=== PATIENT | female | born 1995 | race Caucasian/White ===

== ENCOUNTER → 2021-05-07 | Emergency (ER) | payer MEDICAID ==
[~2021-05-07] VITALS: Ht 160 cm; Wt 53.5 kg
[~2021-05-07] MED LIST: CEPH250C PO
[2021-05-07 01:25] VITALS: BP 108/64
--- NOTE | 2021-05-07 01:25 | NUR ---
PT BIBHUSBAND C/O MOLE TO L NECK PAIN TO TOUCH, MORE RED & ELEVATED THAN USUAL. PT NOTICED TODAY. DENIED DERMATOGOGIST VISIT. SKIN INTACT. PT A/OX4. TOLERATING R/A WELL WITH NO SOB.
--- NOTE | 2021-05-07 02:35 | NUR ---
Patient discharged to home in stable condition. Written and verbal after care instructions given. Patient verbalizes understanding of instruction. PT ambulatory with a steady gait
== END | disposition home or self-care (01) ==
LOC: ER 00:52
DX: D22.4 Melanocytic nevi of scalp and neck (principal)